=== PATIENT | male | born 1990 | race Caucasian/White ===

== ENCOUNTER 2017-11-22 15:54 | Emergency (ER) | payer OTHER ==
[~2017-11-22] VITALS: Ht 182.9 cm; Wt 65.0 kg
[2017-11-22 15:57] VITALS: BP 127/85; TEMP 36.8; Ht 182.9 cm; Wt 65.0 kg
[2017-11-22] MEDS ORDERED: PENI500T2 PO (16:21)
--- NOTE | 2017-11-22 16:25 | EMERGENCY ROOM VISIT NOTE ---
ED Visit Note First contact with patient: 16:01 CHIEF COMPLAINT: Pain from right upper wisdom tooth 2 weeks HISTORY OF PRESENT ILLNESS: Patient is an otherwise healthy 27-year-old male who presents emergency department for evaluation of pain coming from his right upper third molar. The tooth has erupted, and is in decay. He has had problems on and off for about 2 years. He uses ibuprofen intermittently. He reports he had the left upper wisdom tooth pulled under local anesthesia by a dentist which was a difficult procedure, and he would like a referral to oral surgery to attend to the right tooth. He notes some swelling along the gumline , but denies any pus or foul tasting fluid. He reports that the pain radiates to his ear. Denies facial swelling or fever. REVIEW OF SYSTEMS: Review of systems as per HPI. All other systems reviewed were negative. At least 6 systems reviewed. PMH: Electronic medical records are reviewed and summarized as above/below. See Problem List. SOCIAL HISTORY: Patient lives at home. Uses chewing tobacco. Positive alcohol use. PHYSICAL EXAM: Vital Signs: Reviewed Nurse's notes. CONSTITUTIONAL: Patient is a well-appearing 27-year-old male who is awake and alert and in no acute distress. Vital signs are stable. EARS: Tympanic membranes intact, not inflamed, have normal contour. External canals clear. MOUTH: Overall the patient has good dentition. The right upper third molar in question has an obvious cavity, and is tender to percussion. There is slight swelling along the gumline although no focal abscess. Mucous membranes moist, no lesions, tongue and gums appear normal. THROAT: No pharyngeal injection, exudates, or tonsillar hypertrophy. Airway is patent. No trismus noted. FACE: No facial swelling is appreciated. No cellulitic changes. NECK: No lymphadenopathy. . ED COURSE: The patient was seen and examined as above. He will be placed on Pen -Vee K for the a presumed apical abscess, and was given contact information for oral surgery. He does not have any evidence for drainable abscess or Yefri's angina at this time. He will likely require extraction of the tooth. Medication reconciliation: I attest that I have personally reviewed the patient' s current medication list. Blood pressure screening : Patient was found to have normal blood pressure on screening and does not require follow-up. Current/Historical Medications Scheduled Penicillin V Potassium (Veetids), 500 MG PO QID Allergies Coded Allergies: No Known Allergies (Unverified , 11/22/17) Vital Signs Date Time Temp Pulse Resp B/P (MAP) Pulse Ox O2 Delivery O2 Flow Rate FiO2 11/22/17 16:45 72 16 98 11/22/17 15:57 36.8 85 18 127/85 99 Room Air Departure Information Impression Primary Impression: Pain, dental Prescriptions Penicillin V Potassium (VEETIDS) 500 Mg Tab 500 MG PO QID, #40 TAB Prov: Jen Atwood PA 11/22/17 Referrals Mike Delaney D.D.S. [facility] Oral Facial NorahSkip ibarra D.M.D. Oral and Maxillo-Facial Surgery, [facility] [address] Colin DMD, MD, [facility] [place] [facility] Patient Instructions [facility] Additional Instructions Penicillin 500mg: Take one pill four times daily for 10 days for your dental infection. All antibiotics can cause diarrhea. If this occurs and you feel worse or it does not resolve in 1-2 days follow up with your doctor or return to the Emergency Department as this could be signs of serious underlying problems. Any medication can cause an allergic reaction, stop the pills immediately and return to the ER for rash, hives, breathing difficulties, or swelling. Ibuprofen(Motrin, Advil) may be used for fever or pain. Use 600mg every six hours as needed. Take with food. Avoid using more than 2400mg in a 24 hour period. Do not use 2400mg per day for more than three consecutive days without physician direction. Prolonged inappropriate use can lead to stomach upset or ulcers. (AND/OR) Acetaminophen(Tylenol) may be used for fever or pain. Use 1000mg every six hours as needed. Avoid using more than 4000mg in a 24 hour period. Saltwater gargles after meals and before bedtime. Soft foods. Orajel/Anbesol/clove oil as needed for discomfort. Followup with your dentist/oral surgeon for definitive management.
[2017-11-22 16:45] VITALS: PULSE 72; O2SAT 98
== END 2017-11-22 16:35 | disposition home or self-care (01) ==
LOC: C.EDB 15:56 → C.EDD 16:35
DX: K02.9 Dental caries, unspecified (principal); Z72.0 Tobacco use